=== PATIENT | male | born 1975 | race African-American/Black ===

== ENCOUNTER 2020-06-02 22:34 | Emergency (ER) | payer BC, OTHER ==
[~2020-06-02] VITALS: Ht 170.2 cm; Wt 72.6 kg
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
[2020-06-02] MEDS ORDERED: ACETAMINOPHEN 650 MG/20.3 ML UDC ONE (23:07)
[2020-06-02 23:10] LABS: EOSINOPHILS % (AUTO) 0.1 % (0.0-6.0); HEMATOCRIT 30 % (39-51); HEMOGLOBIN 9.8 g/dL (13.5-17.5); LYMPHOCYTES # (AUTO) 0.4 /CMM (0.8-4.8); LYMPHOCYTES % (AUTO) 2.3 % (20.0-44.0); MEAN CORPUSCULAR HGB CONC 32 g/dl (31.0-36.0); MEAN CORPUSCULAR VOLUME 106 fL (80-96); MONOCYTES # (AUTO) 0.8 /CMM (0.1-1.30); MONOCYTES % (AUTO) 5.2 % (2.0-12.0); NEUTROPHILS # (AUTO) 14.1 /CMM (1.8-8.9); NEUTROPHILS % (AUTO) 92.4 % (43.0-81.0); PLATELET COUNT (AUTO) 265 /CMM (150-450); RED BLOOD CELL COUNT(AUTO) 2.88 MIL/uL (4.5-6.0); WHITE BLOOD COUNT (AUTO) 15.2 K/uL (4.3-11.0)
--- NOTE | 2020-06-02 23:25 | NUR ---
RT AT BEDSIDE FOR ABG.
[2020-06-02] MEDS ORDERED: ACETAMINOPHEN 650 MG/20.3 ML UDC GT ONE (23:30)
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
[2020-06-02 23:36] LABS: BILIRUBIN,URINE NEGATIVE (NEGATIVE); COLOR,URINE YELLOW (YELLOW); LEUKOCYTE ESTERASE ,URINE NEGATIVE (NEGATIVE); NITRITE, URINE NEGATIVE (NEGATIVE); PH,URINE 7.5 (5.0-8.0); PROTEIN,URINE 30 mg/dl (NEGATIVE); UGLUCOSE NEGATIVE (NEGATIVE)
[2020-06-02 23:39] LABS: ABG BASE EXCESS 0.9 mmol/L; ABG OXYGEN SATURATION 92.8 % (92.0-98.5); ABG PCO2 34.4 mmHg (35.0-45.0); ABG PH 7.468 (7.350-7.450); ABG PO2 70.9 mmHg (75.0-100.0); AaDO2 174.7 mmHg; COHb 0.3 % (0.5-1.5); MetHb 0.6 % (0.0-1.5); PEEP,BG 5 cm H2O; SITE, ABG Right Radial; VENT MODE, BG AC 15/600/40%/+5; VT, ABG 600 mL
[2020-06-02 23:41] LABS: ALANINE AMINOTRANSFERASE 78 U/L (12-78); ALBUMIN 2.3 g/dL (3.4-5.0); ALKALINE PHOSPHATASE 119 U/L (46-116); ASPARTATE AMINOTRANSFERASE 47 U/L (15-37); BILIRUBIN,DIRECT 0.3 mg/dL (0.0-0.2); BILIRUBIN,TOTAL 0.6 mg/dL (0.2-1.0); CARBON DIOXIDE 30 mmol/L (21-32); CHLORIDE 97 mmol/L (98-107); CREATININE 0.7 mg/dL (0.6-1.3); GLUCOSE 128 mg/dL (74-106); POTASSIUM 5.2 mmol/L (3.5-5.1); SODIUM SERUM 134 mmol/L (136-145); TOTAL PROTEIN, SERUM 6.8 g/dL (6.4-8.2); UREA NITROGEN, BLOOD 23 mg/dL (7-18)
[2020-06-03] LABS: BACTERIA,URINE None seen /HPF (None Seen); MUCUS,URINE Many /LPF (None Seen); SQUAMOUS EPITHELIAL CELL,UR Few /HPF (None Seen); WBC,URINE 0-2 /HPF (0-3)
[2020-06-03] MEDS ORDERED: VANCOMYCIN 1 GM in IV D5W 250 ML IV ONE (00:30)
[2020-06-03] MEDS ORDERED: PIPERACILLIN /TAZOBACTAM 3.375 G in IV D5W 50 ML IV ONE (00:30)
--- NOTE | 2020-06-03 00:50 | NUR ---
DR. FRANCES SPEAKING WITH DR. MINOR
[2020-06-03] MEDS ORDERED: PIPERACILLIN /TAZOBACTAM 3.375 G VIAL IV ONE (01:01)
[2020-06-03] MEDS ORDERED: VANCOMYCIN 1 GM VIAL ONE (01:01)
--- NOTE | 2020-06-03 01:53 | NUR ---
Patient provided with suctioning of trach and mouth.
--- NOTE | 2020-06-03 02:00 | NUR ---
PER PATIENT COORDINATOR FRONT DESK MAY, BED ASSIGNMENT STILL PENDING AT THIS TIME
[2020-06-03] MEDS ORDERED: MORPHINE SULFATE INJ 4 MG/ML DISP.SYRIN ONE ×2 (02:06→08:08)
--- NOTE | 2020-06-03 02:28 | NUR ---
patient provided with trach care/suctioning
[2020-06-03] MEDS ORDERED: MORPHINE SULFATE INJ 2 MG/ML DISP.SYRIN IV ONE ×2 (02:30→08:30)
--- NOTE | 2020-06-03 03:44 | NUR ---
patient still complaining of neck and back pain. md notified.
[2020-06-03] MEDS ORDERED: HYDROMORPHONE 1 MG/1 ML DISP.SYRIN ONE (03:56)
[2020-06-03] MEDS ORDERED: HYDROMORPHONE 1 MG/1 ML DISP.SYRIN IV ONE (04:00)
--- NOTE | 2020-06-03 05:20 | NUR ---
ATTEMPTED TO CONTACT TURNER SPLITTER MACHINE OPERATOR MAY REGARDING TRANSFER INFORMATION. LEFT MESSAGE, WILL FOLLOW UP
--- NOTE | 2020-06-03 06:47 | NUR ---
TRANSFER INFORMATION: PT WILL BE TRANSFERRED TO [facility] PER INSURANCE REQUEST ACCEPTING MD: DR. MINOR NUMBER FOR REPORT: BED ASSIGNMENT: 307A PER JUNE, WILL CALL BACK WITH TRANSPORTATION ETA
--- NOTE | 2020-06-03 06:56 | NUR ---
CURRENTLY ON HOLD FOR REPORT FOR 10 MINUTES... STILL WAITING TO GIVE REPORT.
--- NOTE | 2020-06-03 06:58 | NUR ---
PATRICIA WITH ALFREDO TSAI, FROM [facility] AT [facility]. STAFF STATES THAT THEY CANNOT RECEIVE PATIENT ON THIS FLOOR. STATES, PLEASE CONTACT INTAKE TO CHANGE ROOMS FOR HIGHER LEVEL.
--- NOTE | 2020-06-03 07:06 | NUR ---
NEW BED ASSIGNMENT AT [facility]: 212B NURSE FOR REPORT: QUIN OTERO NUMBER FOR REPORT: [phone]
--- NOTE | 2020-06-03 07:09 | NUR ---
ATTEMPTED TO GIVE REPORT TO CHARGE NURSE OF 212-B, STATE "WE ARE CURRENTLY IN A CHANGE OF SHIFT REPORT, CAN YOU CALL BACK IN 20MINUTES? YOU CAN TRY CALLING [phone] AND ASKING FOR SHIVA."
--- NOTE | 2020-06-03 07:25 | NUR ---
pt received from lisa chau for marti. pt in bed aaox4. not in resp distress, on vent. pt care rendered. pt on monitor
--- NOTE | 2020-06-03 07:35 | NUR ---
REPORT GIVEN TO URSULA TSAI AT [facility].
[2020-06-03] MEDS ORDERED: ONDANSETRON HCL/PF 4 MG/2 ML VIAL ONE (08:08)
--- NOTE | 2020-06-03 08:15 | NUR ---
PT C/O OF NECK PAIN. MADE AWARE. ORDERS RECEIVED. UPON ADMINISTRATION PT IS SLEEPING COMFORTABLY IN BED. MEDS HELD FOR NOW
[2020-06-03] MEDS ORDERED: ONDANSETRON HCL/PF 4 MG/2 ML VIAL IV ONE (08:30)
--- NOTE | 2020-06-03 08:52 | NUR ---
Melissa KAUFFMAN from [facility] ambulance ETA 1pm
--- NOTE | 2020-06-03 09:13 | NUR ---
PT IS AWAKE. PT ASKED FOR PAIN MEDICATION.
--- NOTE | 2020-06-03 10:51 | NUR ---
PT IN BED RESTING WITH EYE CLOSE. PT IS EASILY ARROUSABLE. PT IS COMFORTABLE NO COMPLAINTS OF PAIN
--- NOTE | 2020-06-03 11:10 | NUR ---
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
--- NOTE | 2020-06-03 13:01 | NUR ---
PT'S ASHLEY CALLED TO GET UPDATES REGARDING HER . SHE IS AWARE THAT THE PATIENT IS GOPING TO [facility].
--- NOTE | 2020-06-03 13:54 | NUR ---
MARIANNE ([facility] RADIOLOGY INTERVENTIONAL PHYSICIAN) - [phone]
--- NOTE | 2020-06-03 14:04 | NUR ---
[id number] @ pt's bedside for transfer to [facility]. report given to emt. pt is aaox4. on vent w/o any distress.
[2020-06-03 14:18] VITALS: BP 109/65
--- NOTE | 2020-06-03 14:19 | NUR ---
PT LEFT ON GUREY WITH 4 EMT, MEDIC AND RT @ BEDSIDE W/ ACLS PROTOCOL. PT ON MONITOR. NAD NOTED. REPORT GIVEN
== END 2020-06-03 14:22 | disposition short-term general hospital (02) ==
LOC: ER 22:36
DX: J18.9 Pneumonia, unspecified organism (principal); G82.20 Paraplegia, unspecified; S14.103S Unspecified injury at C3 level of cervical spinal cord, sequela; S12.200S Unspecified displaced fracture of third cervical vertebra, sequela; S12.300S Unspecified displaced fracture of fourth cervical vertebra, sequela; V49.9XXS Car occupant (driver) (passenger) injured in unspecified traffic accident, sequela; Z20.822 Contact with and (suspected) exposure to COVID-19
CPT/HCPCS: 36415; 36600; 71045; 80048; 80076; 81001; 82803; 83605; 84145; 84484; 85025; 85730; 87040 ×2; 87086; 87426; 93005; 96365; 96367; 96375; 96376; 99285; C9803; J1170; J2270 ×2; J2405; J2543; J3370; J7060; 31720